=== PATIENT | male | born 1940 | race Caucasian/White ===

== ENCOUNTER 2019-03-22 18:27 | Emergency (ER) | payer OTHER, MEDICAID ==
[~2019-03-22] VITALS: Ht 162.6 cm; Wt 73.5 kg
--- NOTE | 2019-03-22 18:35 | NUR ---
BIB SON. AAO X4 C/O FALL S/P ETOH, POSSIBLE LOC. ABRASION TO RT FOREHEAD AND RIGHT SIDE OF THE FACE. NO ACTIVE BLEEDING. PT FAMILY STATES "HE DRANK 5 BEERS THEN HE FELL AND WAS LAYING DOWN ON THE FLOOR OUTSIDE THE HOUSE FOR A LITTLE BIT, I'M NOT SURE IF HE PASSED OUT OR NOT". PT DENIES PAIN AND BLOOD THINNER USE. PERRL BRISK 3MM, EQUAL GERRY STRENGTH TO UPPER AND LOWER EXTREMITIES. PT PLACED ON FULL TRANSITION SPECIALIST. HOB UP. BED SIDE RAILS UP X1. ON LOW BED POSITION, LOCKED. ER TO EVALUATE PT.
[2019-03-22 18:39] VITALS: BP 122/62
--- NOTE | 2019-03-22 19:10 | NUR ---
Pt report given to HAILY ALVAREZ. Transfer of care at this time.
--- NOTE | 2019-03-22 19:42 | NUR ---
Dr. Orozco examining patient.
--- NOTE | 2019-03-22 19:45 | NUR ---
IV removed, catheter intact and site benign. Applied folded 4x4 gauze and tape to stop bleeding.
[2019-03-22 19:49] VITALS: BP 122/62
--- NOTE | 2019-03-22 19:49 | NUR ---
Patient discharged with v/s stable. Written and verbal after care instructions given and explained. Patient verbalized understanding. Ambulatory with steady gait. All questions addressed prior to discharge. Advised to follow up with PMD.
== END 2019-03-22 19:49 | disposition home or self-care (01) ==
LOC: MED 18:27
DX: S00.81XA Abrasion of other part of head, initial encounter (principal); W18.39XA Other fall on same level, initial encounter; Y93.89 Activity, other specified; Y92.89 Other specified places as the place of occurrence of the external cause; Y99.8 Other external cause status
CPT/HCPCS: 99281; 99282; 99283

== ENCOUNTER 2020-07-11 11:12 | Inpatient (IN) | payer OTHER, MEDICAID, SELFPAY ==
[~2020-07-11] VITALS: Ht 167.6 cm; Wt 64.0 kg
[2020-07-11 11:12] VITALS: BP 103/61
--- NOTE | 2020-07-11 11:12 | NUR ---
PT WALKED IN FROM, BIBA AND AMBULATED TO BED 10.
--- NOTE | 2020-07-11 11:20 | NUR ---
BIBA FROM HOME C/O PRODUCTIVE COUGH, SOB, AND GENERALIZED WEAKNESS FOR 3 DAYS. PT STATES SON TESTED POSITIVE ON WEDNESDAY FOR COVID AND TOLD HIM TO COME TO ED WITH IN SAME AMBULANCE. O2 SAT 76 ROOM AIR UPON ARRIVAL. PT DENIES MEDICAL HX OR ANY PAIN AT THIS TIME. SWITCHED PT TO NON-REBREATHER ON 15L OXYGEN WITH PAUSE OX 95%. PT PRESENTS WITHOUT DIAPHORESIS, DISTRESS, OR ACCESSORY MUSCLE USE. DR. ONTIVEROS MADE AWARE. HX DENIES
--- NOTE | 2020-07-11 11:44 | NUR ---
DR. ONTIVEROS IS EVALUATING PT AT BEDSIDE.
--- NOTE | 2020-07-11 11:56 | NUR ---
RT IS AT BEDSIDE.
[2020-07-11 12:25] LABS: RSV NEGATIVE (NEGATIVE)
--- NOTE | 2020-07-11 12:25 | NUR ---
Covid Soniya +. Critical value received from lab. Dr Cuello made aware
[2020-07-11 12:30] LABS: BASOPHILS % (AUTO) 0.2 % (0.0-2.0); HEMATOCRIT 42.6 % (36-52); HEMOGLOBIN 14.4 g/dL (12.0-18.0); LYMPHOCYTES % (AUTO) 26.5 % (20.5-51.1); MEAN CORPUSCULAR HEMOGLOBIN 32 pg (27-31); MEAN CORPUSCULAR HGB CONC 34 g/dL (33-37); MEAN CORPUSCULAR VOLUME 94.9 fL (80-94); MONOCYTES # (AUTO) 0.5 K/uL (0.8-1.0); MONOCYTES % (AUTO) 6.2 % (1.7-9.3); NEUTROPHILS % (AUTO) 67.1 % (42.2-75.2); PLATELET COUNT (AUTO) 214 K/uL (140-450); RED BLOOD CELL COUNT(AUTO) 4.49 MIL/uL (4.20-6.10); RED CELL DISTRIBUTION WIDTH 14.4 % (11.6-13.7); WHITE BLOOD COUNT (AUTO) 7.4 K/uL (4.8-10.8)
[2020-07-11 12:46] LABS: LACTATE DEHYDROGENASE 436 U/L (85-227)
[2020-07-11 13:09] LABS: C-REACTIVE PROTEIN QUANT 26.1 mg/dL (0.0-0.9)
[2020-07-11 13:18] LABS: D-DIMER 403 ng/ml (0-400)
[2020-07-11 14:07] LABS: ASPARTATE AMINOTRANSFERASE 48 U/L (15-37); CARBON DIOXIDE 24.1 mmol/L (21-32); CHLORIDE 99 mmol/L (98-107); CREATININE 1.3 mg/dL (0.6-1.3); GLUCOSE 202 mg/dL (74-106); POTASSIUM 3.1 mmol/L (3.5-5.1); SODIUM SERUM 137 mmol/L (136-145); TOTAL BILIRUBIN 0.8 mg/dL (0.0-1.0); UREA NITROGEN, BLOOD 16 mg/dL (7-18)
--- NOTE | 2020-07-11 14:15 | NUR ---
RECEIVED REPORT FORM ER NURSE FOR CONTINUITY OF CARE. PATIENT IS ALERT AND ORIENTED X4. ABLE TO MAKE NEEDS KNOWN. DX WITH COVID, PNA. O2 SAT 93% WITH 15 L NRB. SKIN WARM AND DRY, INTACT. IV SITE RIGHT AC 18 G. MASA NARES COLLECTED. VITAL SIGNS CHECKED. INITIAL ASSESSMENT PERFORMED. ABDOMEN SOFT, NON TENDER. PATIENT DENIES PAIN. ORIENTED PATIENT TO THE HOSPITAL ENVIRONMENT, FALL RISK SIGN POST. NO ACUTE DISTRESS NOTED. DROPLET PRECAUTION. WILL CONTINUE TO MONITOR. Addendum: 07/11/20 at 2036 by Yesy Phoenix RN CORRECT TIME 1615, NOT 1415
--- NOTE | 2020-07-11 14:47 | NUR ---
DISCHARGE PLANNING: THIS IS AN 79 Y/O MALE [facility] PAST MEDICAL HISTORY INCLUDE HTN. INITIAL DIAGNOSIS OF COVID 19, PNA, HYPOXIA. CURRENT LABS INCLUDE WBC 7.4, H/H 14.4/42.6, NA/K 137/3.1, BUN/CREA 16/1.3, D DIMER 403. COVID RAPID TEST POSITIVE. ON 15 L NON REBREATHER. NO CONSULTS YET AT THIS TIME. DC PLAN PENDING ON PATIENT'S RESPONSE TO TREATMENT. Addendum: 07/16/20 at 1640 by Nirali Cheng RN DC PLANNING:' SEEN BY MIGUEL CONTINUE WITH SUPPLEMENTAL OXYGEN ADMINISTERED CONVALESCENT PLASMA AND REMDESIVIR DVT PROPHYLAXIS PROGNOSIS IS GUARDED WITH HIGH RISK OF FURTHER DECOMPENSATION. CM TO FOLLOW Addendum: 07/16/20 at 1645 by Nirali Cheng RN DC PLANNING: PER ANISH ELMORE RN FAMILY MEMBER WANTED TO TAKE HIM HOME SIGNED AMA . OVER SHORT AND DAMAGE CLERK EVANGELIST SPOKE WITH THE FAMILY , DR CEDEÑO EXPLAIN THE HIGH RISK OF TAKING PT WITH OUT OXYGEN BUT FAMILY INSIST, TO TAKE HIM OUT. CM TO FOLLOW Addendum: 07/16/20 at 1650 by Evangelist [place] NURYS MET WITH PATIENT'S FAMILY IN FRONT LOBBY. PATIENT'S FAMILY IS NOW AGREEABLE TO PATIENT STAYING ON THE CONDITION THAT PATIENT IS MOVED FROM ROOM WHERE HAS PASSED. NURYS NOTIFIED HAILY OCONNELL. Addendum: 07/22/20 at 1447 by Fatemeh Foster DC HEALTH INSPECTOR FOOD: RECEIVED ORDER FOR HOME 02. CLARIFIED WITH HAILY HINDS THAT PATIENT IS ON 2L NASAL CANNULA. FAXED ORDER TO [facility]. Addendum: 07/22/20 at 1538 by Fatemeh Foster CM ALEJA SANDERS: FOLLOWED UP WITH DENEEN AT [facility] 02 WILL BE DELIVERED TODAY.
[2020-07-11 14:55] LABS: FIBRINOGEN > 500 mg/dL (200-400); PROTHROMBIN TIME 10.1 secs (10.8-13.4)
--- NOTE | 2020-07-11 15:05 | NUR ---
PT IS RESTING IN THE BED. 15L OXYGEN GIVEN VIA NON-REBRETHER. NO RESPIRATORY DISTRESS OR ACCESSORY MUSCLE USE AT THIS TIME.
[2020-07-11 15:20] LABS: APPEARANCE,URINE CLEAR (CLEAR); BILIRUBIN,URINE 2+ (NEGATIVE); BLOOD, URINE 1+ (NEGATIVE); COLOR,URINE YELLOW (YELLOW); LEUKOCYTE ESTERASE ,URINE NEGATIVE (NEGATIVE); NITRITE, URINE NEGATIVE (NEGATIVE); PH,URINE 5.5 (5.0-9.0); UGLUCOSE NEGATIVE (NEGATIVE)
[2020-07-11] MEDS ORDERED: ZOLPIDEM 5 MG TAB PO PRN (16:05)
[2020-07-11] MEDS ORDERED: POTASSIUM CHLORIDE 40 MEQ, LIDOCAINE MPF 1% 25 MG in NACL 0.9% 250 ML IV PRN (16:05)
[2020-07-11] MEDS ORDERED: HYDROcodone/APAP 7.5/325 MG 1 TAB PO PRN (16:05)
[2020-07-11] MEDS ORDERED: DOCUSATE SODIUM 100 MG GELCAP PO PRN (16:05)
[2020-07-11] MEDS ORDERED: ACETAMINOPHEN 325 MG TAB PO PRN (16:05)
[2020-07-11] MEDS ORDERED: KCL 20 MEQ/WATER INJ PREMIX 200 ML IV PRN (16:05)
[2020-07-11] MEDS ORDERED: guaiFENesin DM 200/20 MG-10 ML 10 ML UDC PO PRN (16:05)
[2020-07-11] MEDS ORDERED: ONDANSETRON 4 MG/2 ML VIAL IM/IVP PRN (16:05)
[2020-07-11] MEDS ORDERED: ALBUTEROL SULFATE/IPRATROPIU 3 ML SOL IH PRN (16:10)
[2020-07-11] MEDS ORDERED: ALBUTEROL HFA MDI 90 MCG/ACTUATION 8 GM INH PRN (16:10)
[2020-07-11 16:15] VITALS: BP 111/70
--- NOTE | 2020-07-11 16:20 | NUR ---
PT HAS BEEN SENT TO ROOM 124B. HAILY FRYE MADE AWARE OF PT'S ARRIVAL.
[2020-07-11] MEDS: NACL 0.9% 1,000 ML IV SCH (16:33)
[2020-07-11 17:01] LABS: WBC,URINE 0-5 /HPF (0-5)
[2020-07-11 17:02] LABS: FINE GRANULAR CASTS,URINE 0-10 /LPF (None Seen)
[2020-07-11 17:03] LABS: CHOL/HDL RATIO 5.4 (1-4.5); FREE T4 (FREE THYROXINE) 1.43 ng/dL (0.76-1.46); MAGNESIUM 2.2 mg/dL (1.8-2.4); PHOSPHORUS 2.7 mg/dL (2.5-4.9); THYROID STIMULATING HORMONE 0.93 uIU/mL (0.34-3.74)
--- NOTE | 2020-07-11 18:01 | NUR ---
FIRST DOSE OF ROCEPHIN GIVEN VIA IVPB, EDUCATION PROVIDED, SAFETY MEASURES IN PLACE. PATIENT DENIES PAIN OR DISCOMFORT AT THIS TIME. WILL CONTINUE TO MONITOR.
[2020-07-11] MEDS ORDERED: remdesivir COMMUNICATION ORDER 1 EA MISC MC PRN (19:05)
--- NOTE | 2020-07-11 19:20 | NUR ---
ENDORSED PATIENT TO DIETARY SERVICES DIRECTOR RN FOR CONTINUITY OF CARE. PATIENT IN STABLE CONDITION.
--- NOTE | 2020-07-11 19:21 | NUR ---
RECEIVED BEDSIDE REPORT FROM DAY RN. PT IS FAROESE SPEAKING ONLY. [place]. AAOX3. RESPIRATIONS ARE EQUAL AND UNLABORED ON NRB 13L. SAT WELL 93%. LUNG SOUNDS ARE CLEAR AND DIMINISHED. SKIN IS INTACT. COLOR IS APPROPRIATE FOR DEVELOPMENTAL AGE. IV ON RAC 18G INFUSING NS AT 60ML/H. DX:COVID-19 AND PNA. ALSO A PATIENT IN BED NEXT TO PATIENT. POC DISCUSSED AND REVIEWED WITH PT AND . CALL LIGHT IS WITHIN REACH. WILL CONTINUE TO MONITOR.
--- NOTE | 2020-07-11 19:30 | NUR ---
OBTAINED TELEPHONE CONSENT FROM SON MARY APONTE FOR CONVALESCENT PLASMA. ALL QUESTIONS AND CONCERNS ADDRESS. TELEPHONE CONSENT WITNESSED ALSO BY SISI JOHANSEN.
[2020-07-11 20:00] VITALS: BP 121/61
--- NOTE | 2020-07-11 21:15 | NUR ---
1ST BAG OF K-RIDER NOW INFUSING PER ORDERS. VITAL SIGNS ARE WITHIN NORMAL LIMITS. MAXINE MEDICATIONS GIVEN PER ORDERS. MED EDUCATION GIVEN PT VERBALIZED UNDERSTANDING. ALL NEEDS MET. CALL LIGHT IS WITHIN REACH. WILL CONTINUE TO MONITOR.
--- NOTE | 2020-07-11 22:00 | NUR ---
PT IS SLEEPING IN BED COMFORTABLY. NO S/S OF DISCOMFORT. PT KEEPS BENDING ARM CAUSING IV PUMP ALARM TO GO OFF. REEDUCATE PT TO KEEP ARM EXTENDED. PT VERBALIZED UNDERSTANDING. ALL NEEDS MET.
[2020-07-12] VITALS: BP 114/70
--- NOTE | 2020-07-12 00:20 | NUR ---
PATIENT ACCIDENTLY PULLED OUT IV. IV CATH FOUND INTACT. MINIMAL BLEEDING WELL CONTROLLED. NEW IV STARTED ON R FA 20G ON FIRST ATTEMPT. PT TOLERATED WELL. CALL LIGHT IS WITHIN REACH. WILL CONTINUE TO MONITOR.
--- NOTE | 2020-07-12 01:52 | NUR ---
MADE ROUNDS. PT IS SLEEPING COMFORTABLY IN BED WITH EYES CLOSED. CHEST RISE AND FALL NOTED. CALL LIGHT IS WITHIN REACH.
--- NOTE | 2020-07-12 02:15 | NUR ---
SECOND BAG OF K-RIDER NOW INFUSING PER ORDERS. WILL CONTINUE TO MONITOR.
[2020-07-12 04:00] VITALS: BP 116/64
--- NOTE | 2020-07-12 04:00 | NUR ---
VITAL SIGNS ARE WITHIN NORMAL LIMITS. ALL SAFETY MEASURES ARE IN PLACE.
[2020-07-12 06:04] LABS: ALBUMIN 2.5 g/dL (3.4-5.0); ANION GAP 13.6 (8-16); ASPARTATE AMINOTRANSFERASE 42 U/L (15-37); CARBON DIOXIDE 25.1 mmol/L (21-32); CHLORIDE 103 mmol/L (98-107); CREATININE 0.8 mg/dL (0.6-1.3); GLUCOSE 123 mg/dL (74-106); POTASSIUM 3.7 mmol/L (3.5-5.1); SODIUM SERUM 138 mmol/L (136-145); TOTAL BILIRUBIN 0.6 mg/dL (0.0-1.0); UREA NITROGEN, BLOOD 13 mg/dL (7-18)
[2020-07-12 06:32] LABS: BASOPHILS % (AUTO) 0.1 % (0.0-2.0); EOSINOPHILS % (AUTO) 0.1 % (0.0-4.0); HEMATOCRIT 37.5 % (36-52); HEMOGLOBIN 12.9 g/dL (12.0-18.0); LYMPHOCYTES # (AUTO) 1.2 K/uL (2.0-11.5); LYMPHOCYTES % (AUTO) 17.3 % (20.5-51.1); MEAN CORPUSCULAR HEMOGLOBIN 32 pg (27-31); MEAN CORPUSCULAR HGB CONC 34 g/dL (33-37); MEAN CORPUSCULAR VOLUME 94.1 fL (80-94); MONOCYTES # (AUTO) 0.5 K/uL (0.8-1.0); MONOCYTES % (AUTO) 8.1 % (1.7-9.3); NEUTROPHILS % (AUTO) 74.4 % (42.2-75.2); PLATELET COUNT (AUTO) 228 K/uL (140-450); RED BLOOD CELL COUNT(AUTO) 3.98 MIL/uL (4.20-6.10); RED CELL DISTRIBUTION WIDTH 14.3 % (11.6-13.7); WHITE BLOOD COUNT (AUTO) 6.8 K/uL (4.8-10.8)
[2020-07-12] MEDS: ALBUTEROL SULFATE/IPRATROPIU 3 ML SOL IH SCH ×3 (07:00→19:00)
--- NOTE | 2020-07-12 07:23 | NUR ---
GAVE BEDSIDE REPORT TO DAY RN. PT ENDORSED IN STABLE CONDITION.
--- NOTE | 2020-07-12 07:24 | NUR ---
HHN RX NOT GIVEN DUE TO COVID 19 PERCAUTIONS
[2020-07-12 08:00] VITALS: BP 126/66
[2020-07-12] MEDS: PANTOPRAZOLE 40 MG TABEC PO SCH (08:43)
[2020-07-12] MEDS: AZITHROMYCIN 250 MG TAB PO SCH (08:44)
[2020-07-12] MEDS: ASCORBIC ACID 500 MG TAB PO SCH (08:44)
[2020-07-12] MEDS: ZINC SULF 220 MG CAP PO SCH (08:44)
--- NOTE | 2020-07-12 08:49 | NUR ---
PATIENT HAS BEEN SCREENED AND CATEGORIZED HIGH NUTRITION RISK. PATIENT WILL BE SEEN WITHIN 1-2 DAYS OF ADMISSION. 07/12/20-07/13/[address]
--- NOTE | 2020-07-12 08:50 | NUR ---
PT IS AWAKE AND ALERT CURRENTLY BEING SEEN BY PT. PT OBSERVED AMBULATING TO RESTROOM WITH SLOW STEADY GAIT. BELARUSIAN SPEAKING AND CAN COMMUNICATE WANTS AND NEEDS. TOLERATED PO MEDICATION WITH NO PROB CONTINUES TO RECEIVE IVF TO RIGHT FOREARM NS AT 60ML/HR. LUNG SOUNDS DIMINISHED, ABD IS FLAT, SOFT AND NONTENDER WITH ACTIVE BS X 4. SKIN IN TACT HAS PATENT AND INTACT IV. CALL LIGHT WITHIN REACH PT REMAINS ON NRB 15L WITH SPO2 93%
[2020-07-12] MEDS: NACL 0.9% 1,000 ML IV SCH (08:56)
[2020-07-12] MEDS ORDERED: CLINICAL MONITORING MC PRN (09:20)
--- NOTE | 2020-07-12 10:49 | NUR ---
PT RESTING IN BED IN NO DISTRESS, REMAINS ON 13L NRB MASK. ALL NEEDS MET CALL LIGHT WITHIN REACH.
[2020-07-12] MEDS ORDERED: REMDESIVIR (EUA) 200 MG in NACL 0.9% 100 ML IV SCH (11:00)
[2020-07-12 12:00] VITALS: BP 118/64
--- NOTE | 2020-07-12 12:30 | NUR ---
PT IS RESTING IN BED, DENIES ANY DISTRESS. REMAINS ON 13L NRB V/S: 98.6, 86, 20, 118/64, 92% PAIN 0/10. CALL LIGHT WITHIN REACH
--- NOTE | 2020-07-12 14:22 | NUR ---
SOCIAL WORK NOTE: Patient's Orientation Unable To Assess Information Provided By MARY FAY - SON Comments SW WAS UNABLE TO MEET PATIENT AT BEDSIDE DUE TO MEDICAL CONDITION. NURYS COMPLETED ASSESSMENT WITH PATIENT'S SON. Fiberglass Technician, Realtionship and Phone Number MARY FONTAINE [phone] Healthcare Power of Lead Scientist No Does Patient Have a POLST No Identifying Problems No Social Work Triggers Is A Social Work Consult Needed No Mandate Report Filed No Explanation Of Identifying Problems PATIENT IS AN 79-YEAR-OLD FEMALE ADMITTED FOR COVID/PNA/HYPOXIA. PATIENT HAS PMHX OF HYPERTENSION. PATIENT'S SON REPORTED NO HISTORY OF MENTAL HEALTH OR SUBSTANCE ABUSE. Admitted From Home Pre-Admission Level Of Functioning Status Independent/Ambulatory Prior Resources/Services Used In Last 12 Months No Prior Resources Used Prior DME No Prior DME Used Dialysis Comments N/A Living Situation Lives With Family House Other Living Situation/Comment PATIENT'S SON REPORTED THAT PATIENT LIVES WITH FAMILY. Patient Had Caregiver No Home Support No Caregiver Issues Financial Issues No Known Financial Issue Referral To The Financial Counselor Needed No Factors/Needs No D/C Needs Identified Explanation And Or Other Factors Affecting/Possible DC Needs PATIENT'S SON STATED HE WOULD PROVIDE TRANSPORTATION FOR PATIENT HOME. Pt/Rep Participated In Discharge Plan Yes Patient/Family Agress With Discharge Plan Yes Discharge Plan Comments TENTATIVE DISCHARGE PLAN IS FOR PATIENT TO RETURN HOME. DC Plan Status Initiated Addendum: 07/16/20 at 1616 by Evangelist ZULUAGA NURYS CONTACTED MARY REGARDING DISCHARGE PLAN FOR PATIENT [phone]. NURYS LEFT VM. Addendum: 07/16/20 at 1634 by Evangelist [place] SS NURYS MET WITH PATIENT'S SON MARY AT [facility] REGARDING DISCHARGE PLAN. PATIENT'S SON WAS VISIBLY UPSET. NURYS PROVIDED GRIEF COUNSELING FOR PATIENT'S SON. PATIENT'S SON STATED THAT HE WILL LET HIS FATHER STAY AT [facility] IF HIS FATHER CAN CHANGE ROOMS. NURYS CONTACTED BED SPRING MAKER BUT SHE WAS UNAVAILABLE. NURYS MET WITH PATIENT'S FAMILY AND PROVIDED PHONE NUMBER FOR BED SPRING MAKER AND NURSING STATION.
--- NOTE | 2020-07-12 14:29 | NUR ---
07/12/20 RD INITIAL ASSESSMENT COMPLETED PLEASE REFER TO NUTRITION ASSESSMENT UNDER CARE ACTIVITY FOR ESTIMATED NUTRITIONAL NEEDS. 1. CONTINUE PUREE DIET TOLERATED 2. PENDING SWALLOW EVALUATION 3. RECOMMEND ENSURE TID 4. PROVIDE ASSISTANCE WITH MEALS AND ENCOURAGE PO INTAKE 5. PROVIDED NUTRITION EDUCATION ON COVID-[address] TO FOLLOW-UP 2-3 DAYS, HIGH RISK D[address], ISHMAEL
--- NOTE | 2020-07-12 14:45 | NUR ---
PT RESTING IN BED CONTINUES TO GET IVF REMAINS ON 13L NRB WITH SPO2 93%. CALL NEEDS MET CALL LIGHT WITHIN REACH, GOT A CALL FROM BLOOD BANK REGARDING PLASMA AND THEY ARE TAKING IT OUT TO [facility]. WILL CALL WHEN READY.
[2020-07-12 16:00] VITALS: BP 125/65
--- NOTE | 2020-07-12 16:30 | NUR ---
RESTING IN BED, AWAITING PLASMA V/S: 98.3, 79, 20, 125/65, 92% ON 13L NRB. CALL LIGHT WITHIN REACH
--- NOTE | 2020-07-12 18:34 | NUR ---
PT CURRENTLY RECEIVING PLASMA TRANSFUSION THAT STARTED AT 1740 NO ADVERSE SIDE EFFECTS V/S STABLE. PT AMBULATED TO RESTROOM WITH STEADY GAIT.
--- NOTE | 2020-07-12 19:32 | NUR ---
PT ENDORSED TO PM RN FOR CONTINUITY OF CARE. PT IS STABLE
--- NOTE | 2020-07-12 19:33 | NUR ---
RECEIVED ENDORSEMENT FROM AM SHIFT RN. PT IS NOT IN DISTRESS, O2 SAT WNL, ON 13L NON-REBREATHER, NO SOB, AOX4, AMBULATE W/ ASSIST, IVF INFUSING, SAFETY MEASURES IN PLACE, FALL PROTOCOL IN PLACE, DROPLET ISO OBSERVED, PLAN OF CARE DISCUSSED, CALL LIGHT WITHIN REACH.
[2020-07-12 20:00] VITALS: BP 127/67
--- NOTE | 2020-07-12 21:07 | NUR ---
DUE MED GIVEN ORDERED, TOLERATED WELL, PT ASKED FOR ADDITIONAL BLANKET, GAVE 1 WARM BLANKET, NO DISTRESS, NO SOB, KEPT COMFORTABLE, CALL LIGHT WITHIN REACH.
[2020-07-13] VITALS: BP 104/52
--- NOTE | 2020-07-13 00:22 | NUR ---
V/S TAKEN AND RECORDED. NO SOB, CALL LIGHT WITHIN REACH.
[2020-07-13] MEDS: ALBUTEROL SULFATE/IPRATROPIU 3 ML SOL IH SCH ×4 (01:00→19:00)
[2020-07-13] MEDS: NACL 0.9% 1,000 ML IV SCH ×2 (01:25→18:05)
--- NOTE | 2020-07-13 02:20 | NUR ---
RFA IV SITE DISLODGED WHEN PT WENT TO USE THE RESTROOM, MINIMAL BLOOD NOTED, CLEANED W/NS COVERED W/DRY DRESSING, RE-INSERTED G22 LH, ATTEMPTED X1 W/ GOOD BLOOD RETURN, SECURED SITE.
[2020-07-13 04:00] VITALS: BP 124/74
--- NOTE | 2020-07-13 04:30 | NUR ---
PT SLEEPING , CHEST RISE NOTED, NO SOB, CALL LIGHT WITHIN REACH.
[2020-07-13 06:24] LABS: BASOPHILS % (AUTO) 0.3 % (0.0-2.0); HEMATOCRIT 35.7 % (36-52); HEMOGLOBIN 12.1 g/dL (12.0-18.0); LYMPHOCYTES % (AUTO) 15.9 % (20.5-51.1); MEAN CORPUSCULAR HEMOGLOBIN 32 pg (27-31); MEAN CORPUSCULAR HGB CONC 34 g/dL (33-37); MONOCYTES # (AUTO) 0.6 K/uL (0.8-1.0); MONOCYTES % (AUTO) 8.7 % (1.7-9.3); NEUTROPHILS # (AUTO) 4.7 K/uL (1.8-7.7); NEUTROPHILS % (AUTO) 75.1 % (42.2-75.2); PLATELET COUNT (AUTO) 271 K/uL (140-450); RED BLOOD CELL COUNT(AUTO) 3.76 MIL/uL (4.20-6.10); RED CELL DISTRIBUTION WIDTH 14.3 % (11.6-13.7); WHITE BLOOD COUNT (AUTO) 6.3 K/uL (4.8-10.8)
[2020-07-13 06:45] LABS: ALBUMIN 2.4 g/dL (3.4-5.0); ANION GAP 15.2 (8-16); ASPARTATE AMINOTRANSFERASE 37 U/L (15-37); CARBON DIOXIDE 23.2 mmol/L (21-32); CHLORIDE 105 mmol/L (98-107); CREATININE 0.7 mg/dL (0.6-1.3); GLUCOSE 136 mg/dL (74-106); POTASSIUM 3.4 mmol/L (3.5-5.1); SODIUM SERUM 140 mmol/L (136-145); TOTAL BILIRUBIN 0.5 mg/dL (0.0-1.0); UREA NITROGEN, BLOOD 14 mg/dL (7-18)
--- NOTE | 2020-07-13 06:47 | NUR ---
PT IS IN STABLE CONDITION, NO SOB, NO DISTRESS, ALL NEEDS ATTENDED, KEPT COMFORTABLE, CALL LIGHT WITHIN REACH.
--- NOTE | 2020-07-13 07:22 | NUR ---
RECEIVED PATIENT FROM NIGHT NURSE. PATIENT IN BED SLEEPING, RESP EVEN AND UNLABORED ON 13L NONREBREATHER, O2SAT 95%, CHEST NOTED RISING. NO NOTED ACUTE S/S DISTRESS. DROPLET PRECAUTION OBSERVED. HOB ELEVATED. SAFETY MEASURES IN PLACE. CALL LIGHT WITHIN REACH. WILL CONTINUE TO MONITOR.
[2020-07-13 08:00] VITALS: BP 139/79
[2020-07-13 08:08] LABS: T4 (THYROXINE) 5.9 ug/dL (4.5-12.0)
[2020-07-13] MEDS: AZITHROMYCIN 250 MG TAB PO SCH (10:13)
[2020-07-13] MEDS: PANTOPRAZOLE 40 MG TABEC PO SCH (10:13)
[2020-07-13] MEDS: ZINC SULF 220 MG CAP PO SCH (10:14)
[2020-07-13] MEDS: ASCORBIC ACID 500 MG TAB PO SCH (10:14)
--- NOTE | 2020-07-13 10:15 | NUR ---
MORNING ROUTINE MEDICATIONS GIVEN. PATIENT TOLERATED WELL. PATIENT SLEEPING, EASILY AROUSABLE TO AWAKE AND ALERT. HOB ELEVATED. RESP EVEN AND UNLABORED ON 13L NONREBREATHER, O2SAT 95%. DENIED OF PAIN AT THIS TIME. LH 22G INTACT INFUSING NS 60ML/HR. LUNGS DIMINISHED. ABLE TO MAKE NEEDS KNOWN. CALL LIGHT WITHIN REACH. WILL CONTINUE TO MONITOR.
[2020-07-13 12:00] VITALS: BP 129/64
--- NOTE | 2020-07-13 12:05 | NUR ---
PATIENT SLEEPING IN BED, CHEST NOTED RISING. NO NOTED ACUTE S/S DISTRESS. CALL LIGHT WITHIN REACH. WILL CONTINUE TO MONITOR.
[2020-07-13] MEDS: REMDESIVIR (EUA) 100 MG in NACL 0.9% 100 ML IV SCH (12:12)
--- NOTE | 2020-07-13 14:25 | NUR ---
PATIENT IN BED SLEEPING, NO ACUTE S/S DISTRESS. RESP EVEN AND UNLABORED ON 13L NONREBREATHER, O2SAT 94%. CALL LIGHT WITHIN REACH. WILL CONTINUE TO MONITOR.
[2020-07-13 16:00] VITALS: BP 121/61
--- NOTE | 2020-07-13 16:35 | NUR ---
PATIENT AMBULATED TO THE BATHROOM WITH STANDBY ASSIST FROM ACCORDION MAKER. PATIENT CAME BACK TO BED AND PULLED OUT HIS IV ACCIDENTLY, "FORGETTING IT WAS THERE." NEW IV INSERTED TO LFA 22G USING ASEPTIC TECHNIQUE, AND WRAPPED IN NICO BANDAGE. PATIENT TEACHING PROVIDED. PATIENT VERBALIZED UNDERSTANDING. CALL LIGHT WITHIN REACH. WILL CONTINUE TO MONITOR.
--- NOTE | 2020-07-13 18:22 | NUR ---
* ST NOTE * Pt seen at bedside after receiving clearance from RN (Zana). Pt alert, cooperative and engaged throughout session, reporting no c/o pain at this time. Bedside Dysphagia and Oral Mechanism Exams completed. See evaluation report for further details. Pt presenting with oral phase WFL as well as pharyngeal phase suspected to be WFL. Pt's swallow integrity presenting with adequate oral motor strength, coordination, and ROM for mandible, lingua and labia, along with adequate swallow initiation, and complete laryngeal elevation upon palpation, w/pt clearing oral cavity after PO intake. Pt would thus benefit from a diet upgrade to finely chopped textures w/thin liquids for all meals, w/aspiration precautions in place. Pt and RN (Zana) education completed re: results of evaluation; benefits of abiding by aspiration precautions and recommended Po diet consistency; and prognosis for improvement; with pt and RN verbalizing understanding and agreement w/clinician's recommendations. Recommend: - PO DIET CONSISTENCY OF MECHANICAL SOFT-FINELY CHOPPED TEXTURES W/THIN LIQUIDS for all meals - CRUSH MEDICATION IN PUREE TEXTURES - MAINTAIN STRICT ASPIRATION PRECAUTIONS DURING PT'S PO INTAKE - Pt can self-feed but requires assistance/cueing - CUE/REMIND PT TO SIT UPRIGHT DURING PO INTAKE; EAT/DRINK SLOWLY; ALTERNATE BTWN SOLIDS AND LIQUIDS; AND TAKE SMALL BITES/SIPS. No further ST follow up indicated at this time. Time In/Out 17:33 - 17:58
--- NOTE | 2020-07-13 18:27 | NUR ---
PATIENT IN BED SLEEPING. CHEST NOTED RISING. NO ACUTE S/S DISTRESS. CALL LIGHT WITHIN REACH. WILL CONTINUE TO MONITOR.
--- NOTE | 2020-07-13 19:28 | NUR ---
ENDORSED PATIENT TO NIGHT NURSE. PATIENT IN STABLE CONDITION.
--- NOTE | 2020-07-13 19:29 | NUR ---
RECEIVED REPORT FROM DAY SHIFT NURSE. PT AWAKE IN BED RESTING WITH HOB ELEVATED. PT AAOX2-3, AMBULATORY, ABLE TO MAKE NEEDS KNOWN. PT ON O2 15LPM/NON-REBREATHER MASK, PT NOT IN DISTRESS. ABDOMEN IS SOFT AND NON-TENDER, ACTIVE BOWEL SOUNDS NOTED. SKIN IS WARM, DRY, AND INTACT. PT WITH IV ACCESS ON LEFT FOREARM D G22 PATENT AND INTACT, IVF INFUSING WELL. TELE MONITOR IN PLACE. PT DENIES ANY PAIN OR DISCOMFORT AT THIS TIME. NO REQUESTS MADE. SAFETY MEASURES IN PLACE. CALL LIGHT WITHIN REACH. WILL CONTINUE TO MONITOR.
[2020-07-13 20:00] VITALS: BP 129/68
--- NOTE | 2020-07-13 20:16 | NUR ---
VS STABLE. SCHEDULED MEDS GIVEN ORDERED. PT NOT IN DISTRESS. NON-REBREATHER MASK IN PLACE. PT DENIES ANY PAIN OR DISCOMFORT. NO REQUESTS MADE. SAFETY MEASURES IN PLACE. CALL LIGHT WITHIN REACH. WILL CONTINUE TO MONITOR.
--- NOTE | 2020-07-13 22:17 | NUR ---
PT ASLEEP. NON REBREATHER MASK IN PLACE. PT NOT IN DISTRESS. VISIBLE CHEST RISE AND FALL NOTED. PT KEPT COMFORTABLE. CALL LIGHT WITHIN REACH. WILL CONTINUE TO MONITOR.
[2020-07-14] VITALS: BP 120/65
--- NOTE | 2020-07-14 00:07 | NUR ---
VS STABLE. NON-REBREATHER MASK IN PLACE. PT NOT IN DISTRESS. DENIES ANY PAIN OR DISCOMFORT AT THIS TIME. NO REQUESTS MADE. PT KEPT COMFORTABLE. SAFETY MEASURES IN PLACE. WILL CONTINUE TO MONITOR.
[2020-07-14] MEDS: ALBUTEROL SULFATE/IPRATROPIU 3 ML SOL IH SCH ×4 (01:00→19:00)
--- NOTE | 2020-07-14 02:02 | NUR ---
PT ASLEEP IN BED. NON-REBREATHER MASK IN PLACE. PT NOT IN DISTRESS. VISIBLE CHEST RISE AND FALL NOTED. PT KEPT COMFORTABLE. SAFETY MEASURES IN PLACE. CALL LIGHT WITHIN REACH, WILL CONTINUE TO MONITOR.
[2020-07-14 04:00] VITALS: BP 125/64
--- NOTE | 2020-07-14 04:12 | NUR ---
VS STABLE. PT RESTING. NON-REBREATHER MASK IN PLACE. PT NOT IN DISTRESS. DENIES ANY PAIN OR DISCOMFORT. NO REQUESTS MADE. SAFETY MEASURES IN PLACE. CALL LIGHT WITHIN REACH. WILL CONTINUE TO MONITOR.
[2020-07-14 06:23] LABS: BASOPHILS % (AUTO) 0.1 % (0.0-2.0); HEMATOCRIT 37.9 % (36-52); HEMOGLOBIN 12.8 g/dL (12.0-18.0); MEAN CORPUSCULAR HEMOGLOBIN 32 pg (27-31); MEAN CORPUSCULAR HGB CONC 34 g/dL (33-37); MEAN CORPUSCULAR VOLUME 95.6 fL (80-94); MONOCYTES # (AUTO) 0.7 K/uL (0.8-1.0); MONOCYTES % (AUTO) 6.4 % (1.7-9.3); NEUTROPHILS # (AUTO) 9.7 K/uL (1.8-7.7); PLATELET COUNT (AUTO) 351 K/uL (140-450); RED BLOOD CELL COUNT(AUTO) 3.97 MIL/uL (4.20-6.10); RED CELL DISTRIBUTION WIDTH 14.2 % (11.6-13.7); WHITE BLOOD COUNT (AUTO) 11.4 K/uL (4.8-10.8)
[2020-07-14 06:54] LABS: ALBUMIN 2.4 g/dL (3.4-5.0); ANION GAP 15.3 (8-16); ASPARTATE AMINOTRANSFERASE 39 U/L (15-37); CARBON DIOXIDE 23.7 mmol/L (21-32); CHLORIDE 106 mmol/L (98-107); CREATININE 0.7 mg/dL (0.6-1.3); GLUCOSE 144 mg/dL (74-106); SODIUM SERUM 141 mmol/L (136-145); TOTAL BILIRUBIN 0.6 mg/dL (0.0-1.0); UREA NITROGEN, BLOOD 18 mg/dL (7-18)
--- NOTE | 2020-07-14 07:15 | NUR ---
ENDORSED TO DAY SHIFT NURSE FOR CONTINUITY OF CARE.
--- NOTE | 2020-07-14 07:20 | NUR ---
RECEIVED PATIENT FROM NIGHT NURSE. PATIENT IN BED AWAKE AND ALERT. RESP EVEN AND UNLABORED ON 13L NONREBREATHER. DENIED OF PAIN AT THIS TIME. PLAN OF CARE DISCUSSED WITH PATIENT. PATIENT VERBALIZED UNDERSTANDING. HOB ELEVATED. DROPLET PRECAUTION OBSERVED. CALL LIGHT WITHIN REACH. WILL CONTINUE TO MONITOR.
[2020-07-14 07:38] LABS: LYMPHOCYTES % (AUTO) 8.4 % (20.5-51.1); NEUTROPHILS % (AUTO) 85.1 % (42.2-75.2)
[2020-07-14 08:00] VITALS: BP 114/67
[2020-07-14] MEDS: ASCORBIC ACID 500 MG TAB PO SCH (09:50)
[2020-07-14] MEDS: ZINC SULF 220 MG CAP PO SCH (09:51)
[2020-07-14] MEDS: NACL 0.9% 1,000 ML IV SCH (09:51)
[2020-07-14] MEDS: PANTOPRAZOLE 40 MG TABEC PO SCH (09:51)
[2020-07-14] MEDS ORDERED: CRUSHER, PILL MC ONE (10:00)
--- NOTE | 2020-07-14 10:05 | NUR ---
PATIENT IN BED WITH HOB ELEVATED. RESP EVEN AND UNLABORED ON 13L NONREBREATHER, O2SAT 92%. DENIED OF PAIN AT THIS TIME. PATIENT ABLE TO MAKE NEEDS KNOWN. LUNGS DIMINISHED. SKIN WARM TO TOUCH AND INTACT. MORNING ROUTINE MEDICATIONS GIVEN AT THIS TIME. PATIENT TOLERATED WELL WITH APPLESAUCE. LFA 22G INTACT AND PATENT INFUSING NS 60ML/HR. SAFETY MEASURES IN PLACE. CALL LIGHT WITHIN REACH. WILL CONTINUE TO MONITOR.
[2020-07-14] MEDS: REMDESIVIR (EUA) 100 MG in NACL 0.9% 100 ML IV SCH (11:30)
[2020-07-14 12:00] VITALS: BP 128/69
--- NOTE | 2020-07-14 12:25 | NUR ---
PATIENT IN BED AWAKE AND ALERT. RESP EVEN AND UNLABORED ON 13L NONREBREATHER, O2SAT 97%. ATTEMPT MADE TO TITRATE PATIENT DOWN TO 11L/MIN NONREBREATHER, PATIENT TOLERATED WELL, O2SAT MAINTAINED 94%. NO NOTED ACUTE S/S DISTRESS. DENIED OF PAIN AT THIS TIME. CALL LIGHT WITHIN REACH. WILL CONTINUE TO MONITOR.
--- NOTE | 2020-07-14 14:18 | NUR ---
PATIENT IN BED SLEEPING, RESP EVEN AND UNLABORED ON 11L NONREBREATHER, O2SAT 95%. NO NOTED ACUTE S/S DISTRESS. CALL LIGHT WITHIN REACH. WILL CONTINUE TO MONITOR.
[2020-07-14 16:00] VITALS: BP 132/69
--- NOTE | 2020-07-14 16:25 | NUR ---
PATIENT AMBULATED TO THE BATHROOM WITH STEADY GAIT. DENIED OF ANY SOB. RESP EVEN AND UNLABORED ON 11L NONREBREATHER, O2SAT 94%. DENIED OF PAIN AT THIS TIME. CALL LIGHT WITHIN REACH. WILL CONTINUE TO MONITOR.
--- NOTE | 2020-07-14 18:20 | NUR ---
PATIENT IN BED RESTING, AWAKE AND ALERT. NO ACUTE S/S OF DISTRESS. RESP EVEN AND UNLABORED ON 11L NONREBREATHER, O2SAT 94%. CALL LIGHT WITHIN REACH. WILL CONTINUE TO MONITOR.
--- NOTE | 2020-07-14 19:22 | NUR ---
ENDORSED PATIENT TO NIGHT NURSE. PATIENT IN STABLE CONDITION.
--- NOTE | 2020-07-14 19:30 | NUR ---
RECEIVED BEDSIDE REPORT FROM DAY SHIFT NURSE. PATIENT IS SLEEPING AROUSABLE BY NAME AND TOUCH. RESPIRATION EVEN UNLABORED ON 11L NON-REBREATHER MASK SATING 92-95%. SKIN IS WARM AND DRY. IV PATENT AND INTACT. PLAN OF CARE WAS DISCUSSED. ALL SAFETY MEASURES IN PLACE. BED IS AT LOW POSITION. CALL LIGHT WITHIN REACH. WILL CONTINUE TO MONITOR.
--- NOTE | 2020-07-14 20:46 | NUR ---
ALL SCHEDULED MEDS WERE GIVEN PER ORDER. NO ASE NOTED. ENCOURAGE PATIENT TO DO PRONE POSITIONING. EXPLAINED THE BENEFITS OF IT. PATIENT VERBALIZES UNDERSTANDING. WILL CONTINUE TO MONITOR.
[2020-07-14 21:00] VITALS: BP 172/84
--- NOTE | 2020-07-14 22:09 | NUR ---
CHECKED ON PATIENT. PATIENT SLEEPING RESPIRATION EVEN UNLABORED ON 11L NON-REBREATHER MASK. NO DISTRESS NOTED WILL CONTINUE TO MONITOR
--- NOTE | 2020-07-14 23:15 | NUR ---
CHECKED ON PATIENT. PATIENT SLEEPING RESPIRATION EVEN UNLABORED ON 11L NON-REBREATHER MASK. SATING 93% NO DISTRESS NOTED. WILL CONTINUE TO MONITOR.
--- NOTE | 2020-07-15 02:08 | NUR ---
ENDORSED PATIENT TO PAULINO FOR CONTINUITY OF CARE
[2020-07-15 05:28] VITALS: BP 126/64
[2020-07-15 06:00] LABS: BASOPHILS % (AUTO) 0.1 % (0.0-2.0); HEMATOCRIT 36.3 % (36-52); HEMOGLOBIN 12.4 g/dL (12.0-18.0); LYMPHOCYTES # (AUTO) 0.8 K/uL (2.0-11.5); LYMPHOCYTES % (AUTO) 6.9 % (20.5-51.1); MEAN CORPUSCULAR HEMOGLOBIN 32 pg (27-31); MEAN CORPUSCULAR HGB CONC 34 g/dL (33-37); MEAN CORPUSCULAR VOLUME 94.9 fL (80-94); MONOCYTES # (AUTO) 0.6 K/uL (0.8-1.0); MONOCYTES % (AUTO) 5.4 % (1.7-9.3); NEUTROPHILS # (AUTO) 10.3 K/uL (1.8-7.7); NEUTROPHILS % (AUTO) 87.6 % (42.2-75.2); PLATELET COUNT (AUTO) 362 K/uL (140-450); RED BLOOD CELL COUNT(AUTO) 3.83 MIL/uL (4.20-6.10); RED CELL DISTRIBUTION WIDTH 14.6 % (11.6-13.7); WHITE BLOOD COUNT (AUTO) 11.8 K/uL (4.8-10.8)
[2020-07-15 06:31] LABS: ALBUMIN 2.4 g/dL (3.4-5.0); ANION GAP 10.1 (8-16); ASPARTATE AMINOTRANSFERASE 34 U/L (15-37); CARBON DIOXIDE 24.7 mmol/L (21-32); CHLORIDE 107 mmol/L (98-107); CREATININE 0.7 mg/dL (0.6-1.3); GLUCOSE 131 mg/dL (74-106); POTASSIUM 3.8 mmol/L (3.5-5.1); SODIUM SERUM 138 mmol/L (136-145); TOTAL BILIRUBIN 0.6 mg/dL (0.0-1.0); UREA NITROGEN, BLOOD 15 mg/dL (7-18)
--- NOTE | 2020-07-15 06:36 | NUR ---
Patient seen and evaluated by an RN. in bed, on 11 liters oximizer, will continue to monitor.
--- NOTE | 2020-07-15 07:15 | NUR ---
REC'D REPORT FROM TRIM AND BURR OPERATOR, PT RESTING 15L NRB, BED LOWEST POSITION. CALL LIGHT WITHIN REACH. PT STABLE. URINAL WITHIN REACH
[2020-07-15 08:00] VITALS: BP 120/70
[2020-07-15] MEDS: ASCORBIC ACID 500 MG TAB PO SCH (09:26)
[2020-07-15] MEDS: ZINC SULF 220 MG CAP PO SCH (09:26)
[2020-07-15] MEDS: PANTOPRAZOLE 40 MG TABEC PO SCH (09:26)
[2020-07-15] MEDS: NACL 0.9% 1,000 ML IV SCH ×2 (09:27→20:58)
--- NOTE | 2020-07-15 11:50 | NUR ---
pt placed on 35% venti mask at 9l to titrate fio2 to keep o2 above 90% pt o2 sat was 90% with no signs of distress noted
[2020-07-15 12:00] VITALS: BP 117/60
[2020-07-15] MEDS: ALBUTEROL SULFATE/IPRATROPIU 3 ML SOL IH SCH ×2 (13:00→19:00)
[2020-07-15] MEDS: REMDESIVIR (EUA) 100 MG in NACL 0.9% 100 ML IV SCH (13:59)
[2020-07-15 16:00] VITALS: BP 105/46
--- NOTE | 2020-07-15 16:36 | NUR ---
07/15/20 RD FOLLOW UP COMPLETED PLEASE REFER TO NUTRITION ASSESSMENT UNDER CARE ACTIVITY FOR ESTIMATED NUTRITIONAL NEEDS. 1. CONTINUE MECHANICAL SOFT DIET 2. CONTINUE ENSURE BID 3. PROVIDE ASSISTANCE WITH MEALS AND ENCOURAGE PO INTAKE 4. RD TO FOLLOW-UP 2-3 DAYS, HIGH RISK D[address], RD
--- NOTE | 2020-07-15 19:25 | NUR ---
GAVE REPORT TO STRIP TANK TENDER NURSE FOR CONTINUITY OF CARE. PATIENT IN STABLE CONDITION.
--- NOTE | 2020-07-15 19:30 | NUR ---
RECEIVED BEDSIDE REPORT FROM DAY SHIFT NURSE. PATIENT IS AWAKE, ALERT, AND COOPERATIVE. RESPIRATION EVEN UNLABORED ON 9L NON-REBREATHER MASK. SKIN IS WARM AND DRY. IV PATENT AND INTACT. PLAN OF CARE WAS DISCUSSED. ALL SAFETY MEASURES IN PLACE. BED IS AT LOW POSITION. CALL LIGHT WITHIN REACH. WILL CONTINUE TO MONITOR.
[2020-07-15 20:00] VITALS: BP 136/72
--- NOTE | 2020-07-15 20:54 | NUR ---
ALL SCHEDULED MEDS WERE GIVEN PER ORDER. NO ASE NOTED. WILL CONTINUE TO MONITOR
--- NOTE | 2020-07-15 21:08 | NUR ---
2000 FOUND PATIENT OFF HIS OXYGEN. SATS 81%. PLACED PATIENT BACK ON HIS VENTI MASK AT 50% 15 LITERS. PT SATS IMPROVED TO 92%. EXPLAINED TO PT TO KEEP MASK ON. PT OCCITAN SPEAKING ONLY
--- NOTE | 2020-07-15 22:45 | NUR ---
CHECKED ON PATIENT. PATIENT SLEEPING RESPIRATION EVEN UNLABORED ON 9L NON-REBREATHER MASK. WILL CONTINUE TO MONITOR
[2020-07-16] VITALS: BP 123/59
[2020-07-16] MEDS: ALBUTEROL SULFATE/IPRATROPIU 3 ML SOL IH SCH ×4 (01:00→19:00)
--- NOTE | 2020-07-16 02:30 | NUR ---
CHECKED ON PATIENT. PATIENT SLEEPING WITH NO DISTRESS SATING 95% WILL CONTINUE TO MONITOR.
--- NOTE | 2020-07-16 05:15 | NUR ---
PROVIDED MORNING CARE
[2020-07-16 06:37] VITALS: BP 126/67
--- NOTE | 2020-07-16 06:46 | NUR ---
PATIENT PULLED OUT HIS IV. NO ACTIVE BLEEDING NOTED. INSERTED NEW ONE AT THE LEFT HAND 24G. WILL CONTINUE TO MONITOR
--- NOTE | 2020-07-16 06:50 | NUR ---
REC'D PT ON VISION BIPAP SETTINGS 14\7 RR 20 FIO2 100% ALARMS ON AND AUDIBLE AND BIPAP IS PLUGGED INTO RED OUTLET, B\S ARE DIMINISHED BILATERALLY PT IS WEARING LARGE FACE MASK PT IS VERY AGITATED AND BREATHING FAST SITTING UP IN BED BVM AT HOB
[2020-07-16 06:58] LABS: BASOPHILS % (AUTO) 0.3 % (0.0-2.0); HEMATOCRIT 37.1 % (36-52); HEMOGLOBIN 12.6 g/dL (12.0-18.0); LYMPHOCYTES # (AUTO) 1.2 K/uL (2.0-11.5); LYMPHOCYTES % (AUTO) 11.2 % (20.5-51.1); MEAN CORPUSCULAR HEMOGLOBIN 32 pg (27-31); MEAN CORPUSCULAR HGB CONC 34 g/dL (33-37); MEAN CORPUSCULAR VOLUME 95.5 fL (80-94); MONOCYTES # (AUTO) 0.6 K/uL (0.8-1.0); MONOCYTES % (AUTO) 5.3 % (1.7-9.3); NEUTROPHILS % (AUTO) 83.2 % (42.2-75.2); PLATELET COUNT (AUTO) 391 K/uL (140-450); RED BLOOD CELL COUNT(AUTO) 3.89 MIL/uL (4.20-6.10); RED CELL DISTRIBUTION WIDTH 14.4 % (11.6-13.7); WHITE BLOOD COUNT (AUTO) 10.8 K/uL (4.8-10.8)
--- NOTE | 2020-07-16 07:06 | NUR ---
ENDORSED PATIENT TO DAY SHIFT NURSE FOR CONTINUITY OF CARE
--- NOTE | 2020-07-16 07:10 | NUR ---
RECEIVED PATIENT FROM NIGHT NURSE. PATIENT IN BED SLEEPING, CHEST NOTED RISING. RESP EVEN AND UNLABORED ON 9L NONREBREATHER. NO ACUTE DISTRESS AT THIS TIME. LH24G INFUSING NS 60ML/HR. DROPLET PRECAUTION OBSERVED. SAFETY MEASURES IN PLACE. CALL LIGHT WITHIN REACH. WILL CONTINUE TO MONITOR.
[2020-07-16 07:53] LABS: ALBUMIN 2.5 g/dL (3.4-5.0); ANION GAP 13.5 (8-16); ASPARTATE AMINOTRANSFERASE 31 U/L (15-37); CARBON DIOXIDE 24.5 mmol/L (21-32); CHLORIDE 106 mmol/L (98-107); CREATININE 0.7 mg/dL (0.6-1.3); GLUCOSE 120 mg/dL (74-106); SODIUM SERUM 140 mmol/L (136-145); TOTAL BILIRUBIN 0.5 mg/dL (0.0-1.0); UREA NITROGEN, BLOOD 20 mg/dL (7-18)
[2020-07-16 08:00] VITALS: BP 116/56
[2020-07-16] MEDS: PANTOPRAZOLE 40 MG TABEC PO SCH (09:00)
[2020-07-16] MEDS: ZINC SULF 220 MG CAP PO SCH (09:00)
[2020-07-16] MEDS: ASCORBIC ACID 500 MG TAB PO SCH (09:01)
--- NOTE | 2020-07-16 09:20 | NUR ---
MORNING ROUTINE MEDICATIONS GIVEN. PATIENT TOLERATED WELL WITH APPLESAUCE. PATIENT AMBULATED TO THE BATHROOM WITH ASSIST. DENIED OF SOB. RESP EVEN AND UNLABORED ON 15L 50% VENTURI MASK. DENIED OF PAIN AT THIS TIME. LH 22G INTACT AND PATENT. SAFETY MEASURES IN PLACE. CALL LIGHT WITHIN REACH. WILL CONTINUE TO MONITOR.
--- NOTE | 2020-07-16 11:00 | NUR ---
PATIENT MADE AWARE OF HIS STATUS. PATIENT VERBALIZED UNDERSTANDING. PATIENT IN BED RESTING. NO NOTED ACUTE S/S DISTRESS AT THIS TIME. CALL LIGHT WITHIN REACH. WILL CONTINUE TO MONITOR.
[2020-07-16] MEDS: REMDESIVIR (EUA) 100 MG in NACL 0.9% 100 ML IV SCH (11:38)
[2020-07-16 12:00] VITALS: BP 124/73
[2020-07-16] MEDS: NACL 0.9% 1,000 ML IV SCH (12:45)
--- NOTE | 2020-07-16 14:05 | NUR ---
SON CAME TO SEE PATIENT AND HIS MOM. SON, ADALIT, AND FAMILY EXPRESSED CONCERNS AND WANTED TO TAKE PATIENT HOME, AGAINST MEDICAL ADVICE OF DR. CEDEÑO. DR CEDEÑO SPOKE TO PATIENT OVER THE PHONE ABOUT RISKS AND BENEFITS OF PATIENT LEAVING AMA. PATIENT LEFT STATED HE WILL LET THE SISTER DECIDE. WILL CONTINUE TO MONITOR.
--- NOTE | 2020-07-16 14:33 | NUR ---
SPOKE TO PATIENT DAUGHTER, BETSY ABOUT FAMILY WANTING TO TAKE PT HOME ON AGAINST MEDICAL ADVICE OF DR CEDEÑO. RISKS AND BENEFITS EXPLAINED TO DAUGHTER. SHE WILL DISCUSS THE CONCERNS FURTHER WITH FAMILY AND WILL LET STAFF KNOW ABOUT HER DECISION. WILL CONTINUE TO MONITOR.
--- NOTE | 2020-07-16 15:50 | NUR ---
PATIENT SON MARY ASKED IF DR CEDEÑO CAN WRITE A PRESCRIPTION FOR OXYGEN FOR PATIENT TO TAKE HOME. SPOKE TO DR CEDEÑO ABOUT THE REQUEST AND DR CEDEÑO STATED HE CAN WRITE A PRESCRIPTION FOR THE SAME OXYGEN THERAPY THE PATIENT IS ON WHICH IS 15L 50% WITH VENTURI MASK. DR CEDEÑO STATED IT IS UNLIKELY THE FAMILY WILL BE ABLE TO GET THIS TYPE OF OXYGEN OUTSIDE THE HOSPITAL SETTING. CASE MANAGEMENT WAS CONTACTED ABOUT GETTING INVOLVED BUT AGREED WITH DR CEDEÑO STATEMENT. PATIENT SON WAS MADE AWARE AND WILL LET US KNOW IF THEY STILL WANT TO TAKE THE PATIENT A.M.A WILL CONTINUE TO MONITOR.
[2020-07-16 16:00] VITALS: BP 129/65
--- NOTE | 2020-07-16 17:08 | NUR ---
AFTER NUMEROUS DISCUSSIONS AND TEACHING OF RISKS AND BENEFITS. FAMILY DECIDED TO LET PATIENT STAY BUT REQUESTED US TO MOVE PATIENT INTO A DIFFERENT ROOM. WILL ACCOMMODATE FAMILY REQUEST. FAMILY VERBALIZED UNDERSTANDING.
--- NOTE | 2020-07-16 19:30 | NUR ---
PATIENT WILL BE MOVED TO ROOM 116. SEVERAL ATTEMPTS TO INSET IV ACCESS FAILED. WILL ENDORSED TO NIGHT NURSE. PATIENT IN STABLE CONDITION.
--- NOTE | 2020-07-16 19:31 | NUR ---
RECEIVED ENDORSEMENT FROM AM SHIFT RN. PT IS ALERT, W/ EPISODES OF CONFUSION, ON 50% VENTURI MASK AT 15L, O2 SAT WNL, NO SOB, NO DISTRESS, AMBULATORY, SAFETY MEASURES IN PLACE, DROPLET ISO OBSERVED, PLAN OF CARE DISCUSSED, CALL LIGHT WITHIN REACH. WILL TRANSFER PT TO RM 116 ONCE IT'S READY AND CLEANED.
[2020-07-16 20:00] VITALS: BP 117/59
--- NOTE | 2020-07-16 20:39 | NUR ---
PT IS AWAKE, ALERT, NO SOB, DUE MEDS GIVEN ORDERED, TOLERATED WELL, CALL LIGHT WITHIN REACH.
--- NOTE | 2020-07-16 21:50 | NUR ---
TRANSFERRED PT TO ROOM 116, ALL BELONGINGS TAKEN W/ THE PT, NO DISTRESS, FAMILY AWARE.
--- NOTE | 2020-07-16 23:00 | NUR ---
CHECKED PT, SLEEPING, RESPIRATION EVEN AND UNLABORED, CALL LIGHT WITHIN REACH.
[2020-07-17] VITALS: BP 126/69
--- NOTE | 2020-07-17 01:00 | NUR ---
PT HAS NO SOB, GAVE ADDITIONAL WARM BLANKET.
[2020-07-17 04:00] VITALS: BP 127/64
[2020-07-17] MEDS: NACL 0.9% 1,000 ML IV SCH (05:25)
--- NOTE | 2020-07-17 05:29 | NUR ---
CHECKED PT, NO SOB, NO DISTRESS, CALL LIGHT WITHIN REACH.
--- NOTE | 2020-07-17 06:57 | NUR ---
PT IS IN STABLE CONDITION, CONTINUE ON VENTURI MASK 15L, O2 SAT 98%, NO DISTRESS, NO SOB, KEPT CLEAN, DRY AND COMFORTABLE, CALL LIGHT WITHIN REACH.
[2020-07-17] MEDS: ALBUTEROL SULFATE/IPRATROPIU 3 ML SOL IH SCH ×2 (07:00→19:00)
--- NOTE | 2020-07-17 07:35 | NUR ---
REC'D BEDSIDE ENDORSEMENT FROM NIGHTSHIFT NURSE. PATIENT IS RESTING AND STABLE. SAFETY MEASURES IN PLACE. WILL CONT W/ CONTINUITY OF CARE.
[2020-07-17 08:00] VITALS: BP 118/69
[2020-07-17 08:34] LABS: BASOPHILS % (AUTO) 0.1 % (0.0-2.0); EOSINOPHILS % (AUTO) 0.2 % (0.0-4.0); HEMATOCRIT 38.7 % (36-52); HEMOGLOBIN 13.3 g/dL (12.0-18.0); LYMPHOCYTES # (AUTO) 1.4 K/uL (2.0-11.5); LYMPHOCYTES % (AUTO) 15.2 % (20.5-51.1); MEAN CORPUSCULAR HEMOGLOBIN 33 pg (27-31); MEAN CORPUSCULAR HGB CONC 34 g/dL (33-37); MEAN CORPUSCULAR VOLUME 95.3 fL (80-94); MONOCYTES # (AUTO) 0.8 K/uL (0.8-1.0); MONOCYTES % (AUTO) 8.6 % (1.7-9.3); NEUTROPHILS % (AUTO) 75.9 % (42.2-75.2); PLATELET COUNT (AUTO) 431 K/uL (140-450); RED BLOOD CELL COUNT(AUTO) 4.06 MIL/uL (4.20-6.10); RED CELL DISTRIBUTION WIDTH 14.3 % (11.6-13.7); WHITE BLOOD COUNT (AUTO) 9.2 K/uL (4.8-10.8)
[2020-07-17] MEDS: ASCORBIC ACID 500 MG TAB PO SCH (08:36)
[2020-07-17] MEDS: PANTOPRAZOLE 40 MG TABEC PO SCH (08:36)
[2020-07-17] MEDS: ZINC SULF 220 MG CAP PO SCH (08:37)
[2020-07-17 08:48] LABS: CARBON DIOXIDE 28.3 mmol/L (21-32); CHLORIDE 103 mmol/L (98-107); CREATININE 0.8 mg/dL (0.6-1.3); GLUCOSE 111 mg/dL (74-106); POTASSIUM 4.3 mmol/L (3.5-5.1); SODIUM SERUM 138 mmol/L (136-145); UREA NITROGEN, BLOOD 19 mg/dL (7-18)
--- NOTE | 2020-07-17 08:55 | NUR ---
ADMINISTERED PRESCRIBED MEDS PER MD ORDER. PATIENT TOLERATED WELL. MEDICATION REINFORCEMENT NEEDED DUE TO LANGUAGE BARRIER. PATIENT SON MARY CALLED VERF'D PHONE NUMBER [phone]. ADVSD PATIENT IS UP AND ALERT, TOOK MEDS AND NOW EATING BREAKFAST. SAFETY MEASURES IN PLACE. WILL CONT TO MONITOR.
[2020-07-17 12:00] VITALS: BP 112/67
--- NOTE | 2020-07-17 12:03 | NUR ---
HOURLY ROUNDING COMPLETED. PATIENT IS LAYING IN BED, DENIES PAIN, NO SIGNS OF DISTRESS. HUNG NEW BAG OF NS @60 ML. PATIENT TOLERATED WELL. BREAKFAST TRAY DISCARDED, ROOM TRAYS CLEANED. SAFETY MEASURES IN PLACE. WILL CONT TO MONITOR.
--- NOTE | 2020-07-17 13:47 | NUR ---
PATIENT FAMILY DOING WINDOW VISIT. PATIENT IS UP AND ALERT. REFUSED TELEVISION ENTERTAINMENT. DENIES PAIN. NO SIGNS OF DISCOMFORT. SAFETY MEASURES IN PLACE. WILL CONT TO MONITOR.
--- NOTE | 2020-07-17 15:19 | NUR ---
HOURLY ROUNDING PERFORMED. PATIENT IS RESTING IN BED. NO SIGNS OF DISTRESS. IV IS PATENT, FLUSHED AND INTACT W/ NS @60 ML. SAFETY MEASURES IN PLACE. WILL CONT TO MONITOR.
[2020-07-17 16:00] VITALS: BP 109/66
--- NOTE | 2020-07-17 18:26 | NUR ---
HOURLY ROUNDING PERFORMED. PATIENT IN BED, FAMILY AT WINDOW. PATIENT DENIES PAIN, FAMILY REQ SOCKS. GIVEN W/ DINNER TRAY. SAFETY MEASURES IN PLACE. WILL CONT TO MONITOR
--- NOTE | 2020-07-17 19:23 | NUR ---
PATIENT ENDORSED TO NIGHTSHIFT NURSE FOR CONTINUITY OF CARE. PATIENT IS STABLE.
[2020-07-17 20:00] VITALS: BP 99/60
--- NOTE | 2020-07-17 20:00 | NUR ---
RECEIVED REPORT OF PT IN STABLE CONDITION.SUMI Hawk.RESP.UNLABORED W/O2.CALL LIGHT IN REACH.NO C/O PAIN &/OR SOB NOW.TELE IS ON AND SHOWING SR.WILL CONT.MONITORING. Addendum: 07/17/20 at 2352 by Rubén Dale RN STEPHANIE Hawk4
[2020-07-18] VITALS: BP 101/62
--- NOTE | 2020-07-18 | NUR ---
SLEEPING.RESP.UNLABORED W/O2.VS STABLE.WILL CONT.MONITORING.CALL LIGHT IN REACH
[2020-07-18] MEDS: ALBUTEROL SULFATE/IPRATROPIU 3 ML SOL IH SCH ×4 (01:00→19:00)
[2020-07-18 04:00] VITALS: BP 112/73
--- NOTE | 2020-07-18 04:04 | NUR ---
HOURLY ROUND DONE.NO DISTRESS NOTED.HR IS SR.
--- NOTE | 2020-07-18 06:24 | NUR ---
SLEPT WELL.NO SOB &/OR C/O PAIN. HR IS SR.
--- NOTE | 2020-07-18 07:30 | NUR ---
RECEIVED PT RESTING COMFORTABLY. NO SOB NOTED. NO SIGNS OF PAIN AT THIS TIME. WILL MONITOR PT.
[2020-07-18 08:00] VITALS: BP 109/63
[2020-07-18 08:57] LABS: BASOPHILS % (AUTO) 0.1 % (0.0-2.0); EOSINOPHILS % (AUTO) 0.1 % (0.0-4.0); HEMATOCRIT 39.6 % (36-52); HEMOGLOBIN 13.2 g/dL (12.0-18.0); LYMPHOCYTES # (AUTO) 1.4 K/uL (2.0-11.5); LYMPHOCYTES % (AUTO) 15.2 % (20.5-51.1); MEAN CORPUSCULAR HEMOGLOBIN 32 pg (27-31); MEAN CORPUSCULAR HGB CONC 34 g/dL (33-37); MEAN CORPUSCULAR VOLUME 95.7 fL (80-94); MONOCYTES # (AUTO) 0.7 K/uL (0.8-1.0); MONOCYTES % (AUTO) 7.6 % (1.7-9.3); PLATELET COUNT (AUTO) 431 K/uL (140-450); RED BLOOD CELL COUNT(AUTO) 4.13 MIL/uL (4.20-6.10); RED CELL DISTRIBUTION WIDTH 14.6 % (11.6-13.7); WHITE BLOOD COUNT (AUTO) 9.1 K/uL (4.8-10.8)
--- NOTE | 2020-07-18 09:00 | NUR ---
SCHEDULED MEDS GIVEN, CRUSHED WITH APPLE SAUCE. PT TOLERATED WELL.
[2020-07-18 09:21] LABS: CARBON DIOXIDE 29.7 mmol/L (21-32); CHLORIDE 101 mmol/L (98-107); CREATININE 0.8 mg/dL (0.6-1.3); GLUCOSE 115 mg/dL (74-106); POTASSIUM 4.7 mmol/L (3.5-5.1); SODIUM SERUM 137 mmol/L (136-145); UREA NITROGEN, BLOOD 22 mg/dL (7-18)
[2020-07-18] MEDS: ASCORBIC ACID 500 MG TAB PO SCH (10:31)
[2020-07-18] MEDS: PANTOPRAZOLE 40 MG TABEC PO SCH (10:31)
[2020-07-18] MEDS: ZINC SULF 220 MG CAP PO SCH (10:31)
[2020-07-18] MEDS: NACL 0.9% 1,000 ML IV SCH ×2 (10:53→14:45)
[2020-07-18 12:00] VITALS: BP 102/63
--- NOTE | 2020-07-18 14:41 | NUR ---
P.T. NOTES D/C FROM P.T. AFTER TX, ENDORSED TO NURSING; O2 SAT 15L MASK=90%
[2020-07-18 16:00] VITALS: BP 115/67
--- NOTE | 2020-07-18 19:00 | NUR ---
PT RESTING. N0 SOB NOTED. NO SIGNS OF PAIN. WILL ENDORSE TO NEXT SHIFT NURSE FOR CONTINUITY OF CARE.
[2020-07-18 20:00] VITALS: BP 109/64
--- NOTE | 2020-07-18 20:05 | NUR ---
TAKING REST.RESP.UNLABORED W/ O2 AT 15L/M VIA VENTI MASK.IVF INFUSING WELL.HR IS SR.CALL LIGHT IN REACH.WILL CONT.MONITORING.
[2020-07-19] VITALS: BP 109/64
--- NOTE | 2020-07-19 | NUR ---
SLEEPING.HE REFUSED TO CHECK HIS VS AT MA.CONDITION STABLE.HR IS SB.RESP.UNLABORED.
[2020-07-19] MEDS: ALBUTEROL SULFATE/IPRATROPIU 3 ML SOL IH SCH ×3 (01:00→13:00)
[2020-07-19 04:00] VITALS: BP 110/72
--- NOTE | 2020-07-19 04:00 | NUR ---
SLEEPING.NO DISTRESS NOTED NOW.
--- NOTE | 2020-07-19 07:30 | NUR ---
RECEIVED PT AWAKE, NO SOB NOTED. NO C/O PAIN AT THIS TIME. WILL CONTINUE TO MONITOR.
--- NOTE | 2020-07-19 07:43 | NUR ---
ENDORSED TO AM RN IN STABLE CONDITION.
[2020-07-19 08:00] VITALS: BP 112/69
[2020-07-19 08:43] LABS: HEMATOCRIT 39.3 % (36-52); HEMOGLOBIN 13.1 g/dL (12.0-18.0); LYMPHOCYTES # (AUTO) 1.4 K/uL (2.0-11.5); LYMPHOCYTES % (AUTO) 14.5 % (20.5-51.1); MEAN CORPUSCULAR HEMOGLOBIN 32 pg (27-31); MEAN CORPUSCULAR HGB CONC 33 g/dL (33-37); MEAN CORPUSCULAR VOLUME 95.3 fL (80-94); MONOCYTES # (AUTO) 0.8 K/uL (0.8-1.0); MONOCYTES % (AUTO) 8.6 % (1.7-9.3); NEUTROPHILS # (AUTO) 7.2 K/uL (1.8-7.7); NEUTROPHILS % (AUTO) 76.9 % (42.2-75.2); PLATELET COUNT (AUTO) 406 K/uL (140-450); RED BLOOD CELL COUNT(AUTO) 4.13 MIL/uL (4.20-6.10); RED CELL DISTRIBUTION WIDTH 14.6 % (11.6-13.7); WHITE BLOOD COUNT (AUTO) 9.3 K/uL (4.8-10.8)
[2020-07-19] MEDS: PANTOPRAZOLE 40 MG TABEC PO SCH (09:49)
[2020-07-19] MEDS: ASCORBIC ACID 500 MG TAB PO SCH (09:50)
[2020-07-19] MEDS: ZINC SULF 220 MG CAP PO SCH (09:50)
[2020-07-19 10:15] LABS: ANION GAP 8.4 (8-16); CHLORIDE 102 mmol/L (98-107); CREATININE 0.8 mg/dL (0.6-1.3); GLUCOSE 137 mg/dL (74-106); POTASSIUM 4.4 mmol/L (3.5-5.1); SODIUM SERUM 136 mmol/L (136-145); UREA NITROGEN, BLOOD 21 mg/dL (7-18)
[2020-07-19 12:00] VITALS: BP 111/68
--- NOTE | 2020-07-19 13:05 | NUR ---
PT RESTING. NO SOB NOTED. NO COMPLAINTS MADE. ENDORSED CARE TO BETSY-RN IN STABLE CONDITION.
--- NOTE | 2020-07-19 13:10 | NUR ---
RECEIVED REPORT FROM NURSE FOR CONTINUITY OF CARE, PT IS STABLE. PT ON 15% VENTURI MASK, PT NEEDS AN IV IT CAME OUT. WILL CONTINUE TO MONITOR.
[2020-07-19] MEDS: NACL 0.9% 1,000 ML IV SCH (14:00)
--- NOTE | 2020-07-19 15:05 | NUR ---
ROUNDING ON PT, PT IS STABLE RESTING IN BED, WILL CONTINUE TO MONITOR.
[2020-07-19 16:00] VITALS: BP 109/65
--- NOTE | 2020-07-19 18:20 | NUR ---
HELPED PT TO THE BATHROOM, EDUCATED PT ON IMPORTANCE OF USING CALL LIGHT, REINFORCEMENT NEEDED, PT IS STABLE, WILL CONTINUE TO MONITOR.
--- NOTE | 2020-07-19 19:30 | NUR ---
RECEIVED BEDSIDE REPORT FROM DAY SHIFT NURSE. PATIENT IS AWAKE AND ALERT. RESPIRATIONS IS EVEN AND UNLABORED. ON 15 L VENTURI MASK. SKIN IS INTACT, WARM, AND DRY. IV RH 22G G PATENT AND INTACT. PLAN OF CARE WAS DISCUSSED. ISOLATION AND SAFETY PROTOCOLS IN PLACE. BED IS IN LOW POSITION AND CALL LIGHTS WITHIN REACH. WILL CONTINUE TO MONITOR.
--- NOTE | 2020-07-19 19:36 | NUR ---
ENDORSE PT TO NIGHT NURSE FOR CONTINUITY OF CARE, PT IS STABLE
[2020-07-19 20:00] VITALS: BP 129/58
--- NOTE | 2020-07-19 20:16 | NUR ---
ALL SCHEDULED MEDS GIVEN. PT IS STABLE. NO SIGNS OF DISTRESS. WILL CONTINUE TO MONITOR.
--- NOTE | 2020-07-19 21:00 | NUR ---
TITRATE PATIENT O2 TO 12L. PATIENT IS SATING 98% WITH NO DISTRESS NOTED. WILL CONTINUE TO MONITOR
[2020-07-20] VITALS: BP 138/71
--- NOTE | 2020-07-20 00:01 | NUR ---
CHECKED ON PATIENT. PATIENT IS ASLEEP. RESPIRATIONS EVEN AND UNLABORED. NO DISTRESS NOTED. WILL CONTINUE TO MONITOR.
[2020-07-20] MEDS: NACL 0.9% 1,000 ML IV SCH ×2 (00:05→13:47)
--- NOTE | 2020-07-20 03:05 | NUR ---
CHECK ON PATIENT. PATIENT IS ASLEEP. RESPIRATIONS EVEN AND UNLABORED. NO DISTRESS NOTED. WILL CONTINUE TO MONITOR.
[2020-07-20 04:00] VITALS: BP 116/65
--- NOTE | 2020-07-20 05:11 | NUR ---
CHECK ON PATIENT. PATIENT IS ASLEEP. RESPIRATIONS EVEN AND UNLABORED. NO DISTRESS NOTED. WILL CONTINUE TO MONITOR.
--- NOTE | 2020-07-20 07:35 | NUR ---
ENDORSE PT TO DAY SHIFT NURSE FOR CONTINUITY OF CARE. PT IS STABLE
[2020-07-20 08:00] VITALS: BP_SYST 116; BP_SYST 118; BP_DIAS 65; BP_DIAS 70
[2020-07-20] MEDS: PANTOPRAZOLE 40 MG TABEC PO SCH (08:30)
[2020-07-20] MEDS: ASCORBIC ACID 500 MG TAB PO SCH (08:30)
[2020-07-20] MEDS: ZINC SULF 220 MG CAP PO SCH (08:31)
--- NOTE | 2020-07-20 08:32 | NUR ---
ALL SCHEDULED MEDS WERE GIVEN PER ORDER. NO ASE NOTED. WILL CONTINUE TO MONITOR
[2020-07-20 09:42] LABS: ANION GAP 9.1 (8-16); CARBON DIOXIDE 28.5 mmol/L (21-32); CHLORIDE 103 mmol/L (98-107); CREATININE 0.7 mg/dL (0.6-1.3); GLUCOSE 106 mg/dL (74-106); POTASSIUM 4.6 mmol/L (3.5-5.1); SODIUM SERUM 136 mmol/L (136-145); UREA NITROGEN, BLOOD 22 mg/dL (7-18)
[2020-07-20 09:56] LABS: BASOPHILS # (AUTO) 0.1 K/uL (0.00-0.22); BASOPHILS % (AUTO) 0.7 % (0.0-2.0); EOSINOPHILS % (AUTO) 0.1 % (0.0-4.0); HEMATOCRIT 39.2 % (36-52); HEMOGLOBIN 13.1 g/dL (12.0-18.0); LYMPHOCYTES # (AUTO) 1.5 K/uL (2.0-11.5); LYMPHOCYTES % (AUTO) 14.7 % (20.5-51.1); MEAN CORPUSCULAR HEMOGLOBIN 32 pg (27-31); MEAN CORPUSCULAR HGB CONC 33 g/dL (33-37); MEAN CORPUSCULAR VOLUME 96.5 fL (80-94); MONOCYTES # (AUTO) 1.1 K/uL (0.8-1.0); NEUTROPHILS # (AUTO) 7.5 K/uL (1.8-7.7); NEUTROPHILS % (AUTO) 73.5 % (42.2-75.2); PLATELET COUNT (AUTO) 374 K/uL (140-450); RED BLOOD CELL COUNT(AUTO) 4.07 MIL/uL (4.20-6.10); RED CELL DISTRIBUTION WIDTH 14.7 % (11.6-13.7); WHITE BLOOD COUNT (AUTO) 10.2 K/uL (4.8-10.8)
--- NOTE | 2020-07-20 10:44 | NUR ---
CHECKED ON PATIENT. PATIENT LAYING IN BED AWAKE. RESPIRATION EVEN UNLABORED ON 10L NON-REBREATHER MASK O2. NO DISTRESS NOTED. WILL CONTINUE TO MONITOR.
--- NOTE | 2020-07-20 10:56 | NUR ---
ENDORSED PATIENT TO GUZMAN FOR CONTINUITY OF CARE.
--- NOTE | 2020-07-20 11:30 | NUR ---
RECEIVED REPORT FROM HAILY REGALADO FOR CONTINUITY OF CARE.
[2020-07-20 12:00] VITALS: BP 98/63
[2020-07-20] MEDS: ALBUTEROL SULFATE/IPRATROPIU 3 ML SOL IH SCH ×2 (13:00→19:00)
--- NOTE | 2020-07-20 13:02 | NUR ---
RECEIVED REPORT FROM GUZMAN FOR CONTINUITY OF CARE. PATIENT RESTING IN BED AWAKE, ON 11L OXYGEN VIA NRB. IV SITE AT RIGHT WRIST 22G INFUSING NS @ 60ML/HR. SAFETY MEASURES IN PLACE, CALL LIGHT WITHIN REACH. NO ACUTE DISTRESS NOTED. WILL CONTINUE TO MONITOR.
--- NOTE | 2020-07-20 13:47 | NUR ---
HANG NEW BAG OF IVF NS. PATIENT SITTING AT THE SIDE OF THE BED. PATIENT'S FAMILY MEMBERS AT THE OUTSIDE OF THE HOSPITAL ROOM SEE THROUGH WINDOW, WATCHING HIM AND TALKING TO HIM. INFORMED FAMILY MEMBERS REGARDING PATIENT'S CONDITION AND PLAN OF CARE. VERBALIZED UNDERSTANDING.
--- NOTE | 2020-07-20 15:12 | NUR ---
PATIENT RESTING IN BED WITH 10L VENTURI MASK. RESPIRATORY EVEN AND UNLABORED. PATIENT IS CALM. NO ACUTE DISTRESS NOTED. WILL CONTINUE TO MONITOR.
[2020-07-20 16:00] VITALS: BP 111/61
--- NOTE | 2020-07-20 18:42 | NUR ---
IV ON THE RIGHT WRIST BLEEDING, REMOVED WITH INTACT CANNULA. INSERT NEW IV CATHETER AT LEFT FOREARM 22 G WITH FIRST ATTEMPT WITH GOOD BLOOD RETURN AND EASILY TO FLUSH WITH NS. PATIENT TOLERATED THE PROCEDURE WELL. SAFETY MEASURES IN PLACE, CALL LIGHT WITHIN REACH. WILL ENDORSE PATIENT TO DIRECTOR DRUG SAFETY RN FOR CONTINUITY OF CARE.
--- NOTE | 2020-07-20 19:21 | NUR ---
ENDORSED PATIENT TO DENIER CONTROL OPERATOR RN CIPRIANO FOR CONTINUITY OF CARE. PATIENT IN STABLE CONDITION WITH 10L VENTURI MASK.
--- NOTE | 2020-07-20 19:23 | NUR ---
PT SLEEPING, EASILY AROUSABLE, AAOX4, AZERBAIJANI SPEAKING ONLY, ON 10L VENTURI MASK WITH SAT OF 98%, NO RESP DISTRESS NOTED, IVF INFUSING WELL, MAINTAIN ON DROPLET PRECAUTION DUE TO COVID POSITIVE, SAFETY MEASURES IN PLACE, CALL LIGHT WITHIN REACH.
[2020-07-20 20:00] VITALS: BP 127/70
[2020-07-21] VITALS: BP 108/62
[2020-07-21] MEDS: ALBUTEROL SULFATE/IPRATROPIU 3 ML SOL IH SCH ×4 (01:00→19:00)
[2020-07-21 04:00] VITALS: BP 130/70
--- NOTE | 2020-07-21 07:25 | NUR ---
PT SLEEPING, NO DISTRESS NOTED, REPORT GIVEN TO HAILY HINDS FOR CONTINUITY OF CARE.
[2020-07-21 08:00] VITALS: BP 109/59
--- NOTE | 2020-07-21 08:00 | NUR ---
RECEIVED REPORT FROM SEWER CONNECTOR FOR CONTINUITY OF CARE. PATIENT ALERT AWAKE ORIENTED X4, NOT IN ANY DISTRESS NOTED. WITH IVF ON GOING AND INFUSING WELL. DENIES PAIN AND SOB. ON 15L VENTURI MASK SATURATION 97%. . ON MONITOR SHOWS SR. NEEDS ATTENDED. WILL CONTINUE TO MONITOR.
--- NOTE | 2020-07-21 09:00 | NUR ---
SPOKE TO RT TO WEAN O2, HE PUT PATIENT ON 2L NC SATURATION IS 95%. WILL CONTINUE TO MONITOR.
[2020-07-21] MEDS: ASCORBIC ACID 500 MG TAB PO SCH (09:11)
[2020-07-21] MEDS: PANTOPRAZOLE 40 MG TABEC PO SCH (09:11)
[2020-07-21] MEDS: ZINC SULF 220 MG CAP PO SCH (09:12)
[2020-07-21] MEDS: NACL 0.9% 1,000 ML IV SCH (09:25)
--- NOTE | 2020-07-21 09:35 | NUR ---
AWAKE AND ALERT NO EVIDENCE OF SOB NOTED ON SIDE OF BED CONSUMING BREAKFAST TRAY OFF SUPPLEMENTAL OXYGEN PLACED BACK ON SUPPLEMENTAL OXYGEN AT 15 LPM VIA VENTI MASK SATURATION 97% HR 78 RR 20 CHANGED OXYGEN DEVICE TO NASAL CANNULA AT 2 LPM RECRUITER SPECIALIST TO MONITOR
[2020-07-21 09:37] LABS: ALBUMIN 2.3 g/dL (3.4-5.0); ANION GAP 6.9 (8-16); ASPARTATE AMINOTRANSFERASE 24 U/L (15-37); CARBON DIOXIDE 29.5 mmol/L (21-32); CHLORIDE 103 mmol/L (98-107); CREATININE 0.7 mg/dL (0.6-1.3); GLUCOSE 102 mg/dL (74-106); LACTATE DEHYDROGENASE 241 U/L (85-227); MAGNESIUM 2.2 mg/dL (1.8-2.4); POTASSIUM 4.4 mmol/L (3.5-5.1); SODIUM SERUM 135 mmol/L (136-145); TOTAL BILIRUBIN 0.7 mg/dL (0.0-1.0); UREA NITROGEN, BLOOD 23 mg/dL (7-18)
--- NOTE | 2020-07-21 09:43 | NUR ---
TOLERATING SUPPLEMENTAL OXYGEN AT 2 LPM VIA NASAL CANNULA JASKARAN/RN NOTIFIED
[2020-07-21 09:49] LABS: BASOPHILS % (AUTO) 0.1 % (0.0-2.0); EOSINOPHILS % (AUTO) 0.3 % (0.0-4.0); HEMATOCRIT 37.1 % (36-52); HEMOGLOBIN 12.4 g/dL (12.0-18.0); LYMPHOCYTES # (AUTO) 1.5 K/uL (2.0-11.5); LYMPHOCYTES % (AUTO) 16.3 % (20.5-51.1); MEAN CORPUSCULAR HEMOGLOBIN 32 pg (27-31); MEAN CORPUSCULAR HGB CONC 33 g/dL (33-37); MEAN CORPUSCULAR VOLUME 96.2 fL (80-94); MONOCYTES % (AUTO) 10.8 % (1.7-9.3); NEUTROPHILS # (AUTO) 6.8 K/uL (1.8-7.7); NEUTROPHILS % (AUTO) 72.5 % (42.2-75.2); PLATELET COUNT (AUTO) 330 K/uL (140-450); RED BLOOD CELL COUNT(AUTO) 3.86 MIL/uL (4.20-6.10); WHITE BLOOD COUNT (AUTO) 9.3 K/uL (4.8-10.8)
[2020-07-21 12:00] VITALS: BP 118/66
--- NOTE | 2020-07-21 12:00 | NUR ---
PATIENT ON 2L NC SATURATION IS 97%, NO SOB NOTED. WILL CONTINUE TO MONITOR.
--- NOTE | 2020-07-21 13:00 | NUR ---
REPORT GIVEN TO HAILY FRYE FOR CONTINUITY OF CARE. IN STABLE CONDITION.
--- NOTE | 2020-07-21 13:00 | NUR ---
RECEIVED REPORT FROM GUZMAN FOR CONTINUITY OF CARE. PATIENT RESTING IN BED. O2 SAT 96% WITH 2L NC. DENIES PAIN OR SOB. IV SITE LEFT FOREARM 22G IN FUSING NS@ 60ML/HR. SAFETY MEASURES IN PLACE, CALL LIGHT WITHIN REACH. WILL CONTINUE TO MONITOR.
--- NOTE | 2020-07-21 13:58 | NUR ---
PATIENT SITTING THE SIDE OF THE BED WITH O2 SAT 93% WITH 2L NC. DENIES SOB OR PAIN. SAFETY MEASURES IN PLACE, CALL LIGHT WITHIN REACH. WILL CONTINUE TO MONITOR.
--- NOTE | 2020-07-21 15:13 | NUR ---
PATIENT RESTING IN BED WITH LEFT LATERAL POSITION. O2 SAT 93% WITH 2L NC. SAFETY MEASURES IN PLACE, WILL CONTINUE TO MONITOR.
[2020-07-21 16:00] VITALS: BP 110/66
--- NOTE | 2020-07-21 17:09 | NUR ---
07/21/20 RD FOLLOW UP COMPLETED PLEASE REFER TO NUTRITION PROGRESS NOTE UNDER CARE ACTIVITY FOR ESTIMATED NUTRITION NEEDS. RD RECOMMENDATIONS: 1. CONTINUE PUREE DIET 2. CONTINUE ENSURE BID 3. CONTINUE PROVIDE ASSISTANCE WITH MEALS AND ENCOURAGE PO INTAKE NEEDED 4. RD TO FOLLOW-UP 2-3 DAYS, HIGH RISK ELIEZER SHAW MBA, RD
--- NOTE | 2020-07-21 17:45 | NUR ---
CHECKED PATIENT. O2 SAT 96% WITH 2L NC. FAMILY MEMBERS AT OUTSIDE OF THE HOSPITAL CHECKING ON THE PATIENT. NO ACUTE DISTRESS NOTED. WILL CONTINUE TO MONITOR.
--- NOTE | 2020-07-21 19:20 | NUR ---
ENDORSED PATIENT TO LOG CHECK SCALER RN FOR CONTINUITY OF CARE. PATIENT IN STABLE CONDITION WITH 2L OXYGEN VIA NC.
--- NOTE | 2020-07-21 19:22 | NUR ---
PT SLEEPING, EASILY AROUSABLE, AAOX4, BELIZEAN SPEAKING ONLY, ON O2 AT 2L VIA NC WITH SAT OF 96%, NO RESP DISTRESS NOTED, IVF INFUSING WELL, MAINTAIN ON DROPLET PRECAUTION DUE TO COVID POSITIVE, SAFETY MEASURES IN PLACE, CALL LIGHT WITHIN REACH.
[2020-07-21 20:00] VITALS: BP 96/66
[2020-07-21] MEDS: methylPREDNISolone SS 40 MG/ML VIAL IVP SCH (20:49)
--- NOTE | 2020-07-21 21:00 | NUR ---
DUE MEDS ADMINISTERED, PT VOIDING FREELY PER URINAL, ALL NEEDS ATTENDED.
[2020-07-22] VITALS: BP 103/64
--- NOTE | 2020-07-22 00:40 | NUR ---
PT SLEEPING, EASILY AROUSABLE, MAINTAINED ON O2 2L NC, NO RESP DISTRESS NOTED, IVF INFUSING WELL, CONTINUE TO MONITOR CLOSELY.
[2020-07-22] MEDS: ALBUTEROL SULFATE/IPRATROPIU 3 ML SOL IH SCH ×4 (01:00→19:00)
[2020-07-22] MEDS: NACL 0.9% 1,000 ML IV SCH ×2 (03:26→18:45)
[2020-07-22 04:00] VITALS: BP 97/45
--- NOTE | 2020-07-22 06:00 | NUR ---
SEEN PT SLEEPING, NO SIGNS OF DISTRESS, IV INFUSING WELL, MONITORED CLOSELY.
--- NOTE | 2020-07-22 07:18 | NUR ---
PT SLEEPING, NO DISTRESS NOTED, REPORT GIVEN TO HAILY HINDS FOR CONTINUITY OF CARE.
[2020-07-22 08:00] VITALS: BP_SYST 117; BP_SYST 96; BP_DIAS 66; BP_DIAS 69
--- NOTE | 2020-07-22 08:00 | NUR ---
RECEIVED REPORT FROM LOCKER OPERATOR FOR CONTINUITY OF CARE. PATIENT ALERT AWAKE ORIENTED X4, NOT IN ANY DISTRESS NOTED. DENIES PAIN AND SOB. WITH IVF ON GOING AND INFUSING WELL. ON 2L NC SATURATING 96%.ON MONITOR SHOWS SR. NEEDS ATTENDED. WILL CONTINUE TO MONITOR.
[2020-07-22] MEDS: PANTOPRAZOLE 40 MG TABEC PO SCH (08:58)
[2020-07-22] MEDS: ZINC SULF 220 MG CAP PO SCH (08:58)
[2020-07-22] MEDS: ASCORBIC ACID 500 MG TAB PO SCH (08:58)
[2020-07-22] MEDS: methylPREDNISolone SS 40 MG/ML VIAL IVP SCH (08:59)
--- NOTE | 2020-07-22 10:00 | NUR ---
PATIENT RESTING IN BED. O2 AT 2L NC, SATURATION 97%, NO SOB NOTED. WILL CONTINUE TO MONITOR.
[2020-07-22 10:04] LABS: RED BLOOD CELL COUNT(AUTO) 3.99 MIL/uL (4.20-6.10); WHITE BLOOD COUNT (AUTO) 11.4 K/uL (4.8-10.8)
[2020-07-22 10:05] LABS: BASOPHILS % (AUTO) 0.2 % (0.0-2.0); HEMATOCRIT 38.1 % (36-52); HEMOGLOBIN 12.7 g/dL (12.0-18.0); LYMPHOCYTES % (AUTO) 9.2 % (20.5-51.1); MEAN CORPUSCULAR HEMOGLOBIN 32 pg (27-31); MEAN CORPUSCULAR HGB CONC 33 g/dL (33-37); MEAN CORPUSCULAR VOLUME 95.7 fL (80-94); MONOCYTES % (AUTO) 6.6 % (1.7-9.3); PLATELET COUNT (AUTO) 283 K/uL (140-450); RED CELL DISTRIBUTION WIDTH 15.2 % (11.6-13.7)
[2020-07-22 10:06] LABS: LYMPHOCYTES # (AUTO) 1.1 K/uL (2.0-11.5); MONOCYTES # (AUTO) 0.8 K/uL (0.8-1.0); NEUTROPHILS # (AUTO) 9.6 K/uL (1.8-7.7)
[2020-07-22 11:16] LABS: POTASSIUM 4.5 mmol/L (3.5-5.1); SODIUM SERUM 136 mmol/L (136-145)
[2020-07-22 11:17] LABS: ANION GAP 15.8 (8-16); CARBON DIOXIDE 29.7 mmol/L (21-32); CHLORIDE 95 mmol/L (98-107)
[2020-07-22 11:18] LABS: ALBUMIN 2.4 g/dL (3.4-5.0); ASPARTATE AMINOTRANSFERASE 37 U/L (15-37); CREATININE 0.8 mg/dL (0.6-1.3); GLUCOSE 209 mg/dL (74-106); LACTATE DEHYDROGENASE 237 U/L (85-227); MAGNESIUM 1.8 mg/dL (1.8-2.4); PHOSPHORUS 3.6 mg/dL (2.5-4.9); TOTAL BILIRUBIN 0.9 mg/dL (0.0-1.0); UREA NITROGEN, BLOOD 24 mg/dL (7-18)
[2020-07-22 12:00] VITALS: BP 107/63
[2020-07-22] MEDS ORDERED: VITC500 PO (15:54)
[2020-07-22] MEDS ORDERED: ZINC220C28 PO (15:54)
[2020-07-22] MEDS ORDERED: DEXT5SYR3 PO (15:54)
[2020-07-22] MEDS ORDERED: DEC4 PO (15:56)
[2020-07-22 16:00] VITALS: BP 112/61
--- NOTE | 2020-07-22 18:00 | NUR ---
SON CALLED AND ASKING FOR UPDATE. I TOLD THEM THAT WE WILL CALL HIM ONCE THE OXYGEN IS DELIVERED. WILL CONTINUE TO MONITOR.
--- NOTE | 2020-07-22 19:16 | NUR ---
RECEIVED REPORT FROM DAY SHIFT NURSE. PT IN BED RESTING WITH HOB ELEVATED. PT AAOX4, AMBULATORY, ABLE TO MAKE NEEDS KNOWN. RESPIRATIONS EVEN AND UNLABORED TO O2 2LPM/NC. PT NOT IN DISTRESS. DENIES ANY SOB AT THIS TIME. ABDOMEN SOFT AND NON-TENDER, ACTIVE BOWEL SOUNDS NOTED. SKIN IS WARM, DRY, AND INTACT. PT WITH IV ACCESS ON LEFT FOREARM G22 PATENT AND INTACT, IVF INFUSING WELL. NO REQUESTS MADE AT THIS TIME. PT KEPT COMFORTABLE. PT FOR DISCHARGE. AWAITING O2 FROM [facility]. WILL CONTINUE TO MONITOR.
--- NOTE | 2020-07-22 19:16 | NUR ---
REPORT GIVEN TO THE ENGINEERING DESIGN SUPERVISOR FOR CONTINUITY OF CARE.
[2020-07-22 20:00] VITALS: BP 110/59
--- NOTE | 2020-07-22 20:10 | NUR ---
O2 ARRIVED FROM [facility]. ASSISTED PT WITH CHANGING CLOTHES. IV ACCESS REMOVED, CANNULA INTACT. ID BAND REMOVED WELL. DISCHARGE INSTRUCTIONS GIVEN TO PATIENT AND FAMILY. BELONGINGS AND DISCHARGE PAPERS AT HAND. PT WHEELED OUT VIA WHEELCHAIR. PT IN STABLE CONDITION.
== END 2020-07-22 20:10 | disposition home or self-care (01) | DRG 871 ==
LOC: MED 11:12 → MTU 14:16
PROVIDERS: ADMIT Family Medicine; ATTEND Family Medicine
PROC: XW13325 Transfusion of Convalescent Plasma (Nonautologous) into Peripheral Vein, Percutaneous Approach, New Technology Group 5 (ICD-10-PCS; principal; 2020-07-12)
PROC: XW033E5 Introduction of Remdesivir Anti-infective into Peripheral Vein, Percutaneous Approach, New Technology Group 5 (ICD-10-PCS; 2020-07-12)
DX: A41.9 Sepsis, unspecified organism (principal); U07.1 COVID-19; J12.89 Other viral pneumonia; J96.01 Acute respiratory failure with hypoxia; E44.0 Moderate protein-calorie malnutrition; E87.1 Hypo-osmolality and hyponatremia; E86.0 Dehydration; E87.6 Hypokalemia; I10 Essential (primary) hypertension; Z68.22 Body mass index [BMI] 22.0-22.9, adult; Z79.899 Other long term (current) drug therapy
CPT/HCPCS: 36415; 36430; 71045; 80048; 80053; 81001; 82150; 82550; 82728; 82948; 83036; 83605; 83615; 83690; 83735; 83880; 84100; 84436; 84439; 84443; 84479; 84484; 85025; 85379; 85384; 85610; 85651; 85730; 86140; 86886; 86900; 86901; 87040; 87081; 87086; 87420; 87804; 92526; 93005; 97110; 97112; 97116; 97161-GP; 97530; 99291; J0696; J1644; J2001; J2920; J3480; J7030; J7060; P9017